=== PATIENT | male | born 1955 | race Two or more races ===

== ENCOUNTER 2020-02-12 06:35 | Day surgery (SDC) | payer OTHER ==
[~2020-02-12] VITALS: Ht 177.8 cm; Wt 90.7 kg
--- NOTE | ~2020-02-12 | OP ---
PATIENT NAME: MARCIA MCCLOUD JR MEDICAL RECORD: [id number] LOCATION:D[facility] ADMISSION DATE: SURGEON: ANNA NIEVES MD DATE OF OPERATION: 02/12/2020 REFERRED BY: Maulik Beckham MD PRIMARY CARE PHYSICIAN: Dr. Yasmany Brothers. PREOPERATIVE DIAGNOSIS: Chronic kidney disease V. POSTOPERATIVE DIAGNOSIS: Chronic kidney disease V. OPERATION PERFORMED: 1. Creation of a left upper extremity brachiocephalic Sheri type AV fistula. 2. Laparoscopic implantation of peritoneal dialysis catheter with embedding with plans for delayed exteriorization. SURGEON: Anna Nieves MD ANESTHESIA: General endotracheal per [employer] FI[employer] SERVICE TECHNICIAN and regional nerve block per [employer] FI[employer] SERVICE TECHNICIAN. 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 He has chronic kidney disease and it is anticipated that he will require dialysis within a few months. He was referred to me for a laparoscopic peritoneal catheter implantation with embedding for delayed exteriorization and also creation of a fistula. He was not considered to be a candidate for an endovascular fistula. DESCRIPTION OF PROCEDURE: Under anesthesia nerve block as well as general endotracheal anesthesia, the patient's left arm was prepped and draped in sterile manner. Examined with ultrasound using a [place] drain as a proximal venous tourniquet and topical nitroglycerin ointment. The cephalic vein was by far dominant and he had an excellent median cubital vein and I elected to go ahead with brachiocephalic fistula as it had been recommended at vein mapping by Dr. Beckham. I made a transverse antecubital incision and exposed the vein and the proximal radial artery. 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 It was small, but positioned very nicely for the anastomosis. The vein was dissected and distal branches ligated and closed with Hemoclips, it was transected and beveled and prepared for anastomosis. It was flushed with heparinized saline and hydrostatically dilated and then controlled with atraumatic vascular clamps. The median cubital vein draining to the basilic drainage basin was closed with 3-0 Vicryl tie and a Hemoclip. The artery was looped with Silastic proximally and distally and gently occluded. An arteriotomy approximately 6-mm in length was made and the artery flushed with heparinized saline proximally and distally. The anastomosis was then carried out of end-of-vein to [id number] with continuous running 7-0 Prolene. Upon completion with release of the occluding loops and clamps, excellent flow developed within the new fistula. The suture line was hemostatic. The wound was irrigated with Ancef and gentamicin solution and hemostasis was found to be adequate. He was examined with handheld continuous wave Doppler and noted to have continuous pulsatile flow in the fistula and then the proximal-proximal OPERATIVE REPORT [id number] AVRIL,MARCIA Meadows JR radial artery. The distal radial artery exhibited continuous pulsatile flow except with occlusion of the fistula. The Doppler flow signal resumed a high resistance, more normal type signal. This to me indicates reversal of flow in the radial artery. There was persistence of good pulsatile flow in the ulnar artery at the wrist as well. The hand had no ischemic change at all, remained pink and warm. The wound was then closed with interrupted inverted 3-0 Vicryl and running intracuticular 4-0 Stratafix and sealed with Dermabond glue and dressed with Maxorb Ag, Tegaderm, and Cavilon skin prep. The patient was then completely reprepped and redraped with a Mas catheter inserted. I used a stencil to determine the site for incision for insertion of the catheter and imbedding the deep cuff in the rectus muscle and to determine an exit site eventually to be in the right lower quadrant. The patient wears a bulletproof vest, which comes down to about 2 inches above the umbilicus and has specifically requested that the catheter exit in the right lower quadrant. I made a transverse incision about an inch in length below the level of the umbilicus and over the rectus muscle. The anterior rectus sheath was exposed and a pursestring suture of 0 Vicryl placed and the muscle infiltrated with 0.25% Marcaine with epinephrine. I then made a small incision in the left upper quadrant and inserted a 5-mm 0-degree laparoscope and an XL Optiview type port. Pneumoperitoneum was established with carbon dioxide and we switched to a 30-degree angled 5-mm telescope. Pneumoperitoneum was developed with carbon dioxide and the patient's abdomen examined. There was no evidence of any significant trauma from the entry of the trocar. There was no bleeding and there were no hernias and there was no omentum in the pelvis. I then inserted the Merit ARC coiled catheter into the abdomen through an angled rectus sheath tunnel. The coiled portion ended up in the right lower quadrant, so it was necessary to place another 5-mm port in the left lower quadrant and reposition the catheter with a grasper. I did not think if there was any torque or reason to think the catheter was going to migrate to the right, it was just that during the insertion it had been placed there mistakenly. The deep cuff was buried in the rectus muscle and the pursestring suture and the anterior rectus sheath tied. The catheter was then placed in a subcutaneous tunnel leaving the superficial cuff in the subcutaneous pocket above the incision and the catheter exited just at about the level of the umbilicus several centimeters laterally. I then used embedding device to place the catheter in a deep tunnel directed laterally. It was heparin-locked and the plug in the end stabilized with a tie of 0 Vicryl. The catheter was tested prior to embedding by running in 1000 cc of saline and then letting it siphon out to the IV bag on the floor and essentially all of the fluid that had been allowed to run into the abdomen ran out very quickly and I was very pleased with the tube function. The wounds were infiltrated with 0.25% Marcaine without epinephrine and closed with interrupted inverted 3-0 Vicryl and running intracuticular Stratafix. The wounds were dressed with Dermabond glue, Maxorb Ag, Tegaderm and Cavilon skin prep and the patient awakened and extubated and taken to the recovery room in stable condition. The Mas catheter was removed in the OR. There was no blood loss, about 1 cc perhaps during the operation. Sponges, instruments, and needles were accounted for. No drain was used and no surgical specimen was submitted for histopathology. The patient will be discharged to home today and arrangements made for him to return to see me in the office next week. He was given a prescription for Belpre OPERATIVE REPORT [id number] MARCIA MCCLOUD JR , 15 tablets. He can take 1 or if needed 2 p.o. every 4 hours p.r.n. pain. He will resume activities as tolerated and stay on the same medications and diet. He is instructed not to return to work and not to drive a car while taking Belpre. TRANSINT:[id number] Voice Confirmation ID: [id number] DOCUMENT ID: [id number] ANNA NIEVES MD CC: MAULIK BECKHAM and JOHN ANDERSON DO [id number] DICTATION DATE: 02/12/20 1251 [employer] SAL[employer] REPRESENTATIVES: 02/12/203 [facility] 02/12/20 [facility] [address] [id number]
[2020-02-12 07:12] LABS: BASOPHILS 0.5 % (0-2); EOSINOPHILS 10.4 % (0-7); HEMATOCRIT 37.2 % (42.0-54.0); HEMOGLOBIN 12.7 g/dL (13.5-17.5); IMMATURE GRANULOCYTES 0.1 % (0-5); INR 0.95 (0.85-1.17); LYMPHOCYTES 19.9 % (15-50); MCH 29.3 pg (26.0-34.0); MCHC 34.1 g/dL (31.0-37.0); MCV 85.9 fL (80.0-100.0); MEAN PLATELET VOLUME 11.1 fL (7.4-10.4); MONOCYTES 11.7 % (2-11); NEUTROPHILS 57.4 % (40-80); PLATELET COUNT 211 10x3/uL (130-400); PROTIME 12.7 SECONDS (11.6-15.0); RBC 4.33 10x6/uL (4.20-6.10); RDW 12.3 % (11.5-14.5); WBC 8.5 10x3/uL (4.8-10.8)
[2020-02-12 07:21] LABS: ANION GAP 12.4 mmol/L (8-16); CALCIUM 9.3 mg/dL (8.5-10.1); CARBON DIOXIDE 24.6 mmol/L (21.0-32.0); CREATININE - SERUM 5.4 mg/dL (0.6-1.3)
[2020-02-12 07:39] VITALS: Ht 177.8 cm; Wt 90.7 kg
--- NOTE | 2020-02-12 18:25 | NUR ---
THIS NURSE PLACES CALL TO DR NIEVES REGARDING PATIENT'S INABILITY TO VOID. DR NIEVES ORDERS FLOMAX AND IN AND OUT CATH. DR NIEVES STATES PATIENT SHOULD BE ABLE TO URINATE LATER AND MAY BE DISCHARGED ONCE IN AND OUT CATH IS PERFORMED. 1841 IN AND OUT CATHETERIZATION IS PERFORMED, APPROX 500 CC CLEAR YELLOW URINE PRODUCED. RIGHT HAND PIV DC'D WITH TIP INTACT. PATIENT DRESSES IN PERSONAL CLOTHING WITH SPOUSE'S ASSISTANCE. 1909 DISCHARGED HOME VIA WHEELCHAIR TO PRIVATE VEHICLE WITH SPOUSE
--- NOTE | 2020-02-12 18:56 | NUR ---
PER DR NIEVES, PATIENT NEEDS FLOMAX 0.4 MG PO DAILY X 5 DAYS CALLED TO PHARMACY. PATIENT REQUESTS [facility]. NO ANSWER AT THIS PHARMACY, PRESCRIPTION INFO LEFT ON AUTOMATED CALL-IN SERVICE. SPOUSE ADVISED TO CALL PHARMACY TOMORROW AND MAKE SURE IT'S READY AND CALL IF THERE'S A PROBLEM.
== END 2020-02-12 19:10 | disposition home or self-care (01) ==
LOC: D.OPS 06:35
PROVIDERS: Anesthesiology; Surgery; ATTEND Internal Medicine
DX: N18.5 Chronic kidney disease, stage 5 (principal); I10 Essential (primary) hypertension; E11.9 Type 2 diabetes mellitus without complications